=== PATIENT | female | born 1955 | race Asian ===

== ENCOUNTER 2018-12-14 12:38 | Outpatient (CLI) | payer MEDICARE ==
--- NOTE | 2018-12-14 14:19 | BD ---
EXAM: DEXA bone density examination HISTORY: 63-year-old postmenopausal female for screening COMPARISON: None FINDINGS: L1--bone mineral density 0.744 g/sq cm; T score -2.2 L2--bone mineral density 0.767 g/sq cm; T score -2.4 L3--bone mineral density 0.715 g/sq cm; T score -3.4 L4--bone mineral density 0.762 g/sq cm; T score -2.7 Total L1-L4--bone mineral density 0.746 g/sq cm; T score -2.7 Left femoral neck--bone mineral density0.572; T score -2.5 Total proximal left femur--bone mineral density 0.816; T score -1.0 IMPRESSION: Osteoporosis This patient has approximately a 6-7 times increased risk of fracture compar ed with young patients with normal bone mineral density.
--- NOTE | 2018-12-25 10:27 | MMO ---
Bilateral MAMMO Bilat Screen [facility]. CLINICAL HISTORY: Patient is 63 years old and is seen for screening. The patient has no family history of breast cancer. The patient has no personal history of cancer. VIEWS: The views performed were: bilateral craniocaudal with tomosynthesis and bilateral mediolateral oblique with tomosynthesis. FILMS COMPARED: The present examination has been compared to prior imaging studies performed at [facility] on 09/13/2014, 11/03/2015 and 11/29/2016. MAMMOGRAM FINDINGS: There are scattered fibroglandular densities. There are stable benign appearing calcifications seen in both breasts. There are also vascular calcifications. There are no suspicious masses, suspicious calcifications, or new areas of architectural distortion. IMPRESSION: THERE IS NO MAMMOGRAPHIC EVIDENCE OF MALIGNANCY. A ROUTINE FOLLOW-UP MAMMOGRAM IN 1 YEAR IS RECOMMENDED. THE RESULTS OF THIS EXAM WERE SENT TO THE PATIENT. ACR BI-RADS Category 2 - Benign finding MAMMOGRAPHY NOTE: 1. A negative mammogram report should not delay a biopsy if a dominant of clinically suspicious mass is present. 2. Approximately 10% to 15% of breast cancers are not detected by mammography. 3. Adenosis and dense breasts may obscure an underlying neoplasm.
== END 2018-12-14 12:39 | disposition home or self-care (01) ==
LOC: BICMAMMO 12:38
PROVIDERS: ATTEND Internal Medicine
DX: Z12.31 Encounter for screening mammogram for malignant neoplasm of breast (principal); Z13.820 Encounter for screening for osteoporosis; M81.0 Age-related osteoporosis without current pathological fracture
CPT/HCPCS: 77063; 77067; 77080

== ENCOUNTER 2020-01-23 10:38 | Outpatient (CLI) | payer MEDICARE, MEDICAID ==
--- NOTE | 2020-01-23 11:35 | RAD ---
2 VIEW CHEST: Date: 01/23/2020 HISTORY: Cough and pneumonia. No comparison. FINDINGS: Heart size upper normal. The vascular and interstitial markings are mildly prominent. No focal infilt rate. No effusion. Osseous structures unremarkable with degenerative spine changes and postoperative changes at the right humeral head. IMPRESSION: Borderline cardiomegaly. Mild vascular and interstitial prominence without evidence of focal infiltra te. No focal infiltrate identified. POS: AGW
== END 2020-01-23 10:39 | disposition home or self-care (01) ==
LOC: BICRAD 10:38
PROVIDERS: ATTEND Internal Medicine
DX: J18.9 Pneumonia, unspecified organism (principal); R06.02 Shortness of breath; R05 Cough; I51.7 Cardiomegaly; R91.8 Other nonspecific abnormal finding of lung field
CPT/HCPCS: 36415; 71046; 80053; 83036; 83880; 85025

== ENCOUNTER 2020-04-30 14:28 | Outpatient (CLI) | payer MEDICARE, MEDICAID ==
--- NOTE | 2020-04-30 14:55 | RAD ---
EXAM: XR Lumbar Spine 2 Or 3 View PROVIDED CLINICAL HISTORY: Low back pain for one year. Worsening pain over last week. COMPARISON: None FINDINGS: There are 5 nonrib-bearing lumbar-type vertebral bodies. Scattered osteophytes are seen in the lumbar spine. The vertebral body heights and intervertebral disc spaces are within normal limits. No fracture or subluxation is appreciated. There is mild right convex curvature of the thoracolumbar spi ne. Vascular calcifications are seen in the abdominal aorta. IMPRESSION: Degenerative changes lumbar spine.
--- NOTE | 2020-04-30 14:56 | RAD ---
XR Thoracic Spine 3 V STANDARD History: Injury. Pain Comparison: None. Findings: No acute fracture of the thoracic spine. There is mild degenerative disc space height loss in the midthoracic spine from T6-T9. No significant listhesis.. Paraspinal soft tissues are intact. IMPRESSION: Mild spondylosis. No acute osseous abnormality.
== END 2020-04-30 14:29 | disposition home or self-care (01) ==
LOC: SCSRAD 14:28
PROVIDERS: ATTEND Psychiatry & Neurology Neurology
DX: M54.5 Low back pain (principal); M54.6 Pain in thoracic spine; M47.814 Spondylosis without myelopathy or radiculopathy, thoracic region; M47.816 Spondylosis without myelopathy or radiculopathy, lumbar region
CPT/HCPCS: 72072; 72100

== ENCOUNTER 2023-02-01 17:30 | Outpatient (CLI) | payer OTHER | END 2023-02-01 17:31 | disposition home or self-care (01) | LOC: SLEEPLAB 17:30 | PROVIDERS: ATTEND Internal Medicine Critical Care Medicine | DX: G47.33 Obstructive sleep apnea (adult) (pediatric) (principal); R53.83 Other fatigue; R06.83 Snoring | CPT/HCPCS: 95800 ==

== ENCOUNTER 2023-03-16 17:00 | Outpatient (CLI) | payer OTHER, MEDICAID | END 2023-03-16 17:01 | disposition home or self-care (01) | LOC: SLEEPLAB 17:00 | PROVIDERS: ATTEND Internal Medicine Critical Care Medicine | DX: G47.33 Obstructive sleep apnea (adult) (pediatric) (principal); R53.83 Other fatigue; R06.83 Snoring | CPT/HCPCS: 95811 ==